=== PATIENT | female | born 1960 | race Caucasian/White ===

== ENCOUNTER 2017-05-28 07:33 | Emergency (ER) | payer SELFPAY ==
[~2017-05-28] VITALS: Ht 172.7 cm; Wt 117.9 kg
[~2017-05-28 07:33] MED LIST: ASPIRIN CHEWABL81 M1 PO; B12,B-12,B 12500 MC1 PO; TRAMADOL HCL50 MG PO; TRIMOX500 MG PO; VIBRAMYCIN100 MG PO
[2017-05-28 07:45] VITALS: BP 153/93
[2017-05-28] MEDS ORDERED: PREDNISONE50 MG PO (08:42)
[2017-05-28] MEDS ORDERED: PROAIR HFA8.5 GM INH (08:42)
[2017-05-28] MEDS ORDERED: ZITHROMAX250 MG PO (09:37)
== END 2017-05-28 08:46 | disposition home or self-care (01) ==
LOC: ED 07:33
DX: J20.9 Acute bronchitis, unspecified (principal); F17.200 Nicotine dependence, unspecified, uncomplicated; Z90.710 Acquired absence of both cervix and uterus; Z79.899 Other long term (current) drug therapy; Z79.82 Long term (current) use of aspirin

== ENCOUNTER 2018-06-12 05:17 | Emergency (ER) | payer SELFPAY ==
[~2018-06-12] VITALS: Ht 172.7 cm; Wt 111.1 kg
[~2018-06-12 05:17] MED LIST changes: +PREDNISONE50 MG PO; +PROAIR HFA8.5 GM INH; +ZITHROMAX250 MG PO
[2018-06-12 05:19] VITALS: BP 175/86
[2018-06-12] MEDS ORDERED: CEFDINIR300 MG PO (05:45)
[2018-06-12] MEDS ORDERED: PREDNISONE20 M1 PO (05:46)
== END 2018-06-12 05:52 | disposition home or self-care (01) ==
LOC: ED 05:17
DX: J40 Bronchitis, not specified as acute or chronic (principal)

== ENCOUNTER → 2018-10-01 | Outpatient (CLI) | payer SELFPAY ==
[~2018-10-01] MED LIST changes: +CEFDINIR300 MG PO; +DELTASONE20 M1 PO; +PREDNISONE20 M1 PO
== END | disposition home or self-care (01) ==
LOC: RESCLI 09:03
DX: N63.12 Unspecified lump in the right breast, upper inner quadrant (principal); M79.89 Other specified soft tissue disorders

== ENCOUNTER → 2018-10-04 | Outpatient (CLI) | payer SELFPAY | END | disposition home or self-care (01) | LOC: US 00:47 | DX: Z12.11 Encounter for screening for malignant neoplasm of colon (principal); M79.89 Other specified soft tissue disorders; I10 Essential (primary) hypertension; N63.0 Unspecified lump in unspecified breast; Z90.710 Acquired absence of both cervix and uterus ==

== ENCOUNTER → 2018-10-08 | Outpatient (CLI) | payer SELFPAY ==
[2018-10-08 07:25] LABS: ALBUMIN 3.8 gm/dl (3.1-4.5); BUN 22 mg/dl (7-24); CHLORIDE 106 mmol/L (98-107); CREATININE 0.67 mg/dL (0.55-1.02); POTASSIUM 4.2 mmol/L (3.5-5.1); SGOT/AST 19 IU/L (3-35); SGPT/ALT 22 U/L (12-78); SODIUM 141 mmol/L (136-145)
[2018-10-08 07:26] LABS: ALKALINE PHOSPHATASE 92 U/L (45-117); TOTAL PROTEIN 7.2 gm/dL (6.4-8.2)
[2018-10-08 07:35] LABS: BASO # 0.1 10*3/uL (0.0-0.1); BASO % 0.7 % (0.0-1.0); EOS # 0.2 10*3/uL (0.0-0.4); HEMATOCRIT 42.9 % (37.0-47.0); HEMOGLOBIN 14.2 g/dl (12.0-16.0); LYMPH # 2.2 10*3/uL (1.3-4.4); LYMPH % 24.5 % (27.0-41.0); MEAN CELL VOLUME 90.1 fl (81.0-99.0); MEAN CORPUSCULAR HGB 29.8 pg (27.0-31.0); MEAN CORPUSCULAR HGB CONC 33.1 g/dl (33.0-37.0); MEAN PLATELET VOLUME 11.9 fl (9.6-12.3); MONO # 0.6 10*3/uL (0.1-1.0); MONO % 6.5 % (3.0-9.0); NEUT # 5.8 10*3/uL (2.3-7.9); NEUT % 66.1 % (47.0-73.0); PLATELET COUNT AUTOMATED 179 10*3/uL (130-400); RED BLOOD COUNT 4.76 10*6/uL (4.10-5.10); RED CELL DISTRI WIDTH 13.5 % (0-14.5); WHITE BLOOD COUNT 8.8 10*3/uL (4.8-10.8)
== END | disposition home or self-care (01) ==
LOC: LAB 06:26
PROVIDERS: Internal Medicine
DX: I10 Essential (primary) hypertension (principal)

== ENCOUNTER → 2018-11-08 | Outpatient (CLI) | payer SELFPAY | END | disposition home or self-care (01) | LOC: RESCLI 00:20 | DX: N63.0 Unspecified lump in unspecified breast (principal); I10 Essential (primary) hypertension; F32.9 Major depressive disorder, single episode, unspecified; F17.200 Nicotine dependence, unspecified, uncomplicated ==

== ENCOUNTER → 2018-12-24 | Outpatient (CLI) | payer SELFPAY | END | disposition home or self-care (01) | LOC: RESCLI 02:16 | DX: I10 Essential (primary) hypertension (principal); R19.7 Diarrhea, unspecified; F32.9 Major depressive disorder, single episode, unspecified; R11.0 Nausea; Z79.899 Other long term (current) drug therapy; Z87.891 Personal history of nicotine dependence ==

== ENCOUNTER 2019-01-13 16:12 | Emergency (ER) | payer SELFPAY ==
[~2019-01-13] VITALS: Ht 172.7 cm; Wt 108.9 kg
[~2019-01-13 16:12] MED LIST changes: -DELTASONE20 M1 PO
[2019-01-13 16:15] VITALS: BP 151/60
[2019-01-13] MEDS ORDERED: DELTASONE20 M1 PO (17:02)
== END 2019-01-13 17:14 | disposition home or self-care (01) ==
LOC: ED 16:12
DX: T78.3XXA Angioneurotic edema, initial encounter (principal); K14.8 Other diseases of tongue; J39.2 Other diseases of pharynx; M54.2 Cervicalgia; Y92.89 Other specified places as the place of occurrence of the external cause

== ENCOUNTER → 2019-01-29 | Outpatient (CLI) | payer SELFPAY ==
[~2019-01-29] MED LIST changes: +DELTASONE20 M1 PO
== END | disposition home or self-care (01) ==
LOC: RESCLI 08:17
DX: I10 Essential (primary) hypertension (principal); R19.7 Diarrhea, unspecified; E55.9 Vitamin D deficiency, unspecified; E53.8 Deficiency of other specified B group vitamins; N63.0 Unspecified lump in unspecified breast; Z72.0 Tobacco use

== ENCOUNTER 2019-04-15 04:56 | Emergency (ER) | payer SELFPAY ==
[~2019-04-15] VITALS: Ht 172.7 cm; Wt 108.9 kg
--- NOTE | ~2019-04-15 | EKG ---
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
[2019-04-15 04:56] VITALS: BP 153/63
[2019-04-15 06:08] LABS: BASO # 0.1 10*3/uL (0.0-0.1); EOS # 0.1 10*3/uL (0.0-0.4); EOS % 1.9 % (1.0-4.0); HEMATOCRIT 40.5 % (37.0-47.0); LYMPH # 1.8 10*3/uL (1.3-4.4); LYMPH % 25.3 % (27.0-41.0); MEAN CELL VOLUME 92.5 fl (81.0-99.0); MEAN CORPUSCULAR HGB 29.7 pg (27.0-31.0); MEAN CORPUSCULAR HGB CONC 32.1 g/dl (33.0-37.0); MEAN PLATELET VOLUME 11.9 fl (9.6-12.3); MONO # 0.7 10*3/uL (0.1-1.0); NEUT # 4.4 10*3/uL (2.3-7.9); NEUT % 60.7 % (47.0-73.0); PLATELET COUNT AUTOMATED 206 10*3/uL (130-400); RED BLOOD COUNT 4.38 10*6/uL (4.10-5.10); RED CELL DISTRI WIDTH 13.2 % (0-14.5); WHITE BLOOD COUNT 7.3 10*3/uL (4.8-10.8)
[2019-04-15 06:18] LABS: ALBUMIN 3.2 gm/dl (3.1-4.5); BUN 15 mg/dl (7-24); CHLORIDE 105 mmol/L (98-107); CREATININE 1.03 mg/dL (0.55-1.02); POTASSIUM 4.1 mmol/L (3.5-5.1); SGOT/AST 88 IU/L (3-35); SGPT/ALT 115 U/L (12-78); SODIUM 138 mmol/L (136-145)
[2019-04-15 06:20] LABS: ALKALINE PHOSPHATASE 181 U/L (45-117)
[2019-04-15 06:25] LABS: TROPONIN I < 0.015 ng/ml (<0.045)
[2019-04-15 06:34] LABS: ACT PARTIAL THROMBO TIME 25.8 SECONDS (20.0-32.1); INTERNATIONAL NORM RATIO 0.9 (2.0-3.5)
[2019-04-15] MEDS ORDERED: AVPAK AZITHROM250 M1 PO (06:34)
[2019-04-15] MEDS ORDERED: MEDROL DOSEPAK4 MG PO (06:34)
[2019-04-15] MEDS ORDERED: LEVAQUIN750 M1 PO (06:46)
== END 2019-04-15 06:51 | disposition home or self-care (01) ==
LOC: ED 04:56
PROVIDERS: Emergency Medicine
DX: J20.9 Acute bronchitis, unspecified (principal); J18.1 Lobar pneumonia, unspecified organism; I10 Essential (primary) hypertension; F17.200 Nicotine dependence, unspecified, uncomplicated; Z88.8 Allergy status to other drugs, medicaments and biological substances; Z79.899 Other long term (current) drug therapy; Z79.2 Long term (current) use of antibiotics; Z79.82 Long term (current) use of aspirin

== ENCOUNTER 2019-04-20 10:30 | Emergency (ER) | payer SELFPAY ==
[~2019-04-20] VITALS: Ht 172.7 cm; Wt 108.9 kg
--- NOTE | ~2019-04-20 | EKG ---
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
--- NOTE | ~2019-04-20 | EKG ---
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
[~2019-04-20 10:30] MED LIST changes: +AVPAK AZITHROM250 M1 PO; +LEVAQUIN750 M1 PO; +MEDROL DOSEPAK4 MG PO
[2019-04-20 11:06] LABS: BASO # 0.1 10*3/uL (0.0-0.1); BASO % 0.6 % (0.0-1.0); EOS # 0.1 10*3/uL (0.0-0.4); EOS % 0.7 % (1.0-4.0); HEMATOCRIT 40.7 % (37.0-47.0); HEMOGLOBIN 13.1 g/dl (12.0-16.0); LYMPH # 2.3 10*3/uL (1.3-4.4); LYMPH % 22.3 % (27.0-41.0); MEAN CELL VOLUME 91.9 fl (81.0-99.0); MEAN CORPUSCULAR HGB 29.6 pg (27.0-31.0); MEAN CORPUSCULAR HGB CONC 32.2 g/dl (33.0-37.0); MEAN PLATELET VOLUME 11.4 fl (9.6-12.3); MONO % 9.6 % (3.0-9.0); NEUT # 6.7 10*3/uL (2.3-7.9); NEUT % 66.3 % (47.0-73.0); NUCLEATED RED BLOOD CELL 0.2 % (0.0-0.0); PLATELET COUNT AUTOMATED 225 10*3/uL (130-400); RED BLOOD COUNT 4.43 10*6/uL (4.10-5.10); RED CELL DISTRI WIDTH 13.3 % (0-14.5); WHITE BLOOD COUNT 10.1 10*3/uL (4.8-10.8)
[2019-04-20 11:27] LABS: ACT PARTIAL THROMBO TIME 23.5 SECONDS (20.0-32.1)
[2019-04-20 11:29] LABS: ALBUMIN 3.1 gm/dl (3.1-4.5); ALKALINE PHOSPHATASE 241 U/L (45-117); BUN 15 mg/dl (7-24); CHLORIDE 106 mmol/L (98-107); CREATININE 0.89 mg/dL (0.55-1.02); POTASSIUM 3.8 mmol/L (3.5-5.1); SGOT/AST 132 IU/L (3-35); SGPT/ALT 186 U/L (12-78); SODIUM 139 mmol/L (136-145)
[2019-04-20 11:32] LABS: TROPONIN I < 0.015 ng/ml (<0.045)
[2019-04-20 14:00] VITALS: BP 156/82
== END 2019-04-20 16:00 | disposition left against medical advice (07) ==
LOC: ED 10:30
PROVIDERS: Emergency Medicine
DX: J18.1 Lobar pneumonia, unspecified organism (principal); R91.8 Other nonspecific abnormal finding of lung field; R74.0 Nonspecific elevation of levels of transaminase and lactic acid dehydrogenase [LDH]; F17.200 Nicotine dependence, unspecified, uncomplicated; Z88.8 Allergy status to other drugs, medicaments and biological substances; Z79.2 Long term (current) use of antibiotics; Z79.899 Other long term (current) drug therapy; Z79.82 Long term (current) use of aspirin

== ENCOUNTER 2019-04-27 19:17 | Emergency (ER) | payer SELFPAY ==
[~2019-04-27] VITALS: Ht 172.7 cm; Wt 104.3 kg
[2019-04-27 19:20] VITALS: BP 144/70
[2019-04-27] MEDS ORDERED: MEDROL DOSEPAK4 MG PO (21:05)
== END 2019-04-27 21:14 | disposition home or self-care (01) ==
LOC: ED 19:17
DX: L27.1 Localized skin eruption due to drugs and medicaments taken internally (principal); T50.905A Adverse effect of unspecified drugs, medicaments and biological substances, initial encounter; F17.200 Nicotine dependence, unspecified, uncomplicated; Z88.8 Allergy status to other drugs, medicaments and biological substances; Y92.89 Other specified places as the place of occurrence of the external cause

== ENCOUNTER → 2019-05-14 | Outpatient (CLI) | payer SELFPAY | END | disposition home or self-care (01) | LOC: RESCLI 01:47 | DX: C34.90 Malignant neoplasm of unspecified part of unspecified bronchus or lung (principal); C80.1 Malignant (primary) neoplasm, unspecified; C78.7 Secondary malignant neoplasm of liver and intrahepatic bile duct; R11.0 Nausea; Z79.899 Other long term (current) drug therapy ==

== ENCOUNTER → 2019-06-17 | Outpatient (CLI) | payer SELFPAY | END | disposition home or self-care (01) | LOC: RESCLI 02:28 | DX: C34.90 Malignant neoplasm of unspecified part of unspecified bronchus or lung (principal); C80.1 Malignant (primary) neoplasm, unspecified; C78.7 Secondary malignant neoplasm of liver and intrahepatic bile duct; R11.0 Nausea; Z79.899 Other long term (current) drug therapy; Z90.710 Acquired absence of both cervix and uterus ==

== ENCOUNTER 2019-08-12 11:25 | Emergency (ER) | payer MEDICAID ==
[~2019-08-12] VITALS: Ht 172.7 cm; Wt 99.8 kg
[2019-08-12 11:33] VITALS: BP 155/92
[2019-08-12] MEDS ORDERED: CLINDAMYCIN HC300 MG PO (12:07)
[2019-08-12] MEDS ORDERED: AMOXICILLIN500 M2 PO (12:07)
[2019-08-12] MEDS ORDERED: Peridex 473 ML473 ML PO (12:09)
== END 2019-08-12 12:14 | disposition home or self-care (01) ==
LOC: ED 11:25
DX: K04.7 Periapical abscess without sinus (principal); F17.200 Nicotine dependence, unspecified, uncomplicated; Z88.8 Allergy status to other drugs, medicaments and biological substances; Z79.82 Long term (current) use of aspirin; Z79.899 Other long term (current) drug therapy; Z90.710 Acquired absence of both cervix and uterus

== ENCOUNTER → 2020-02-05 | Outpatient (CLI) | payer OTHER ==
[~2020-02-05] MED LIST changes: +AMOXICILLIN500 M2 PO; +CLINDAMYCIN HC300 MG PO; +Peridex 473 ML473 ML PO
== END | disposition home or self-care (01) ==
LOC: RESCLI 14:09
PROVIDERS: ATTEND Internal Medicine
DX: C34.90 Malignant neoplasm of unspecified part of unspecified bronchus or lung (principal); F32.9 Major depressive disorder, single episode, unspecified; F41.9 Anxiety disorder, unspecified; R11.0 Nausea; Z72.0 Tobacco use; Z79.899 Other long term (current) drug therapy; Z90.710 Acquired absence of both cervix and uterus; Z98.51 Tubal ligation status

== ENCOUNTER → 2020-03-02 | Outpatient (CLI) | payer OTHER | LOC: RESCLI 08:57 | PROVIDERS: ATTEND Social Worker Clinical | DX: I10 Essential (primary) hypertension (principal); G57.90 Unspecified mononeuropathy of unspecified lower limb; E55.9 Vitamin D deficiency, unspecified; C80.1 Malignant (primary) neoplasm, unspecified; C34.90 Malignant neoplasm of unspecified part of unspecified bronchus or lung; Z79.899 Other long term (current) drug therapy; Z90.710 Acquired absence of both cervix and uterus; Z98.51 Tubal ligation status ==

== ENCOUNTER → 2020-03-09 | Outpatient (CLI) | payer OTHER ==
[2020-03-09 13:26] LABS: HEMATOCRIT 41.3 % (37.0-47.0); MEAN CELL VOLUME 96.7 fl (81.0-99.0); MEAN CORPUSCULAR HGB 30.9 pg (27.0-31.0); NUCLEATED RED BLOOD CELL 0.5 % (0.0-0.0); RED BLOOD COUNT 4.27 10*6/uL (4.10-5.10); RED CELL DISTRI WIDTH 16.6 % (0-14.5); WHITE BLOOD COUNT 6.1 10*3/uL (4.8-10.8)
[2020-03-09 13:41] LABS: PLATELET COUNT AUTOMATED 23 10*3/uL (130-400)
[2020-03-09 13:47] LABS: TOTAL CELLS COUNTED 100 #CELLS
[2020-03-09 13:48] LABS: PLATELET SUFFICIENCY LOW (NORMAL); POLYCHROMASIA SLIGHT
[2020-03-09 13:53] LABS: ALBUMIN 2.7 gm/dl (3.1-4.5); ALKALINE PHOSPHATASE 171 U/L (45-117); BUN 21 mg/dl (7-24); CHLORIDE 104 mmol/L (98-107); CHOLESTEROL 250 mg/dL (<200); CREATININE 0.87 mg/dL (0.55-1.02); HDL CHOLESTEROL 64 mg/dl (40-60); LDL CHOLESTEROL 159 mg/dL (9-159); POTASSIUM 4.6 mmol/L (3.5-5.1); SGOT/AST 83 IU/L (3-35); SGPT/ALT 174 U/L (12-78); SODIUM 139 mmol/L (136-145); TOTAL PROTEIN 6.8 gm/dL (6.4-8.2); TRIGLYCERIDES 134 mg/dl (<150); VLDL CHOLESTEROL 27 mg/dL (6-40)
[2020-03-09 14:37] LABS: VITAMIN D, 25-HYDROXY 10.1 ng/mL (30-100)
== END | disposition home or self-care (01) ==
LOC: LAB 12:19
PROVIDERS: ATTEND Social Worker Clinical
DX: I10 Essential (primary) hypertension (principal); E55.9 Vitamin D deficiency, unspecified; G57.90 Unspecified mononeuropathy of unspecified lower limb; Z79.899 Other long term (current) drug therapy

== ENCOUNTER → 2020-03-11 | Outpatient (CLI) | payer OTHER ==
[~2020-03-11] MED LIST changes: +AMLODIPINE BESYL5 MG PO; +BUMETANIDE2 MG PO; +CARVEDILOL25 MG PO; +GABAPENTIN100 M2 PO; +LORAZEPAM1 MG PO; +PERCOCET 7.5-31 EACH PO; +PROVENTIL HFA6.7 GM INH
[2020-03-11 08:18] LABS: HEMATOCRIT 41.1 % (37.0-47.0); MEAN CELL VOLUME 96.9 fl (81.0-99.0); MEAN CORPUSCULAR HGB 31.1 pg (27.0-31.0); MEAN CORPUSCULAR HGB CONC 32.1 g/dl (33.0-37.0); MEAN PLATELET VOLUME 11.9 fl (9.6-12.3); NUCLEATED RED BLOOD CELL 0.1 10*3/uL (0.0-0.0); RED BLOOD COUNT 4.24 10*6/uL (4.10-5.10); RED CELL DISTRI WIDTH 17.4 % (0-14.5); WHITE BLOOD COUNT 7.6 10*3/uL (4.8-10.8)
[2020-03-11 08:22] LABS: PLATELET COUNT AUTOMATED 27 10*3/uL (130-400)
[2020-03-11 08:44] LABS: TOTAL CELLS COUNTED 100 #CELLS
[2020-03-11 08:45] LABS: PLATELET SUFFICIENCY LOW (NORMAL)
== END | disposition home or self-care (01) ==
LOC: RESCLI 01:32 → LAB 01:32 → RESCLI 07:44
PROVIDERS: Internal Medicine; ATTEND Internal Medicine
DX: I10 Essential (primary) hypertension (principal); E55.9 Vitamin D deficiency, unspecified; C34.90 Malignant neoplasm of unspecified part of unspecified bronchus or lung; C80.1 Malignant (primary) neoplasm, unspecified; C78.7 Secondary malignant neoplasm of liver and intrahepatic bile duct; F32.9 Major depressive disorder, single episode, unspecified; G57.90 Unspecified mononeuropathy of unspecified lower limb; C79.31 Secondary malignant neoplasm of brain; R60.9 Edema, unspecified; D69.6 Thrombocytopenia, unspecified

== ENCOUNTER 2020-03-17 20:07 | Inpatient (IN) | payer OTHER ==
[~2020-03-17] VITALS: Ht 172.7 cm; Wt 120.0 kg
[~2020-03-17 20:07] MED LIST changes: -AMLODIPINE BESYL5 MG PO; -BUMETANIDE2 MG PO; -CARVEDILOL25 MG PO; -GABAPENTIN100 M2 PO; -LORAZEPAM1 MG PO; -PERCOCET 7.5-31 EACH PO; -PROVENTIL HFA6.7 GM INH
[2020-03-17 20:12] VITALS: BP 95/44
[2020-03-17 21:18] LABS: HEMATOCRIT 39.6 % (37.0-47.0); MEAN CELL VOLUME 96.1 fl (81.0-99.0); MEAN CORPUSCULAR HGB 31.1 pg (27.0-31.0); MEAN CORPUSCULAR HGB CONC 32.3 g/dl (33.0-37.0); NUCLEATED RED BLOOD CELL 0.4 % (0.0-0.0); PLATELET COUNT AUTOMATED 31 10*3/uL (130-400); RED BLOOD COUNT 4.12 10*6/uL (4.10-5.10); RED CELL DISTRI WIDTH 17.1 % (0-14.5); WHITE BLOOD COUNT 7.1 10*3/uL (4.8-10.8)
[2020-03-17 21:36] LABS: ALBUMIN 2.3 gm/dl (3.1-4.5); CREATININE 1.98 mg/dL (0.55-1.02); POTASSIUM 4.6 mmol/L (3.5-5.1); TOTAL PROTEIN 6.6 gm/dL (6.4-8.2)
[2020-03-17 21:40] LABS: PLATELET SUFFICIENCY NORMAL (NORMAL); TOTAL CELLS COUNTED 100 #CELLS
[2020-03-17 23:01] LABS: BILIRUBIN 1+ (Negative); BLOOD Negative (Negative); CLARITY Cloudy (Clear); COLOR Dark Yellow (Yellow); GLUCOSE Negative (Negative); KETONE Negative (Negative); LEUKO ESTERASE 2+ (Negative); NITRITE Negative (Negative); SPECIFIC GRAVITY 1.015 (1.001-1.030)
[2020-03-17 23:09] LABS: EPITHELIAL CELLS 31-40
[2020-03-18] VITALS (15 sets, daily range): BP systolic 78–115; BP diastolic 47–77
[2020-03-18] MEDS ORDERED: PROVENTIL HFA6.7 GM INH (01:14)
[2020-03-18] MEDS ORDERED: BUMETANIDE2 MG PO (01:14)
[2020-03-18] MEDS ORDERED: CARVEDILOL25 MG PO (01:14)
[2020-03-18] MEDS ORDERED: AMLODIPINE BESYL5 MG PO (01:15)
[2020-03-18] MEDS ORDERED: GABAPENTIN100 M2 PO (01:15)
[2020-03-18] MEDS ORDERED: PERCOCET 7.5-31 EACH PO (01:15)
[2020-03-18] MEDS ORDERED: LORAZEPAM1 MG PO (01:15)
--- NOTE | 2020-03-18 02:56 | NUR ---
A 59, admitted to 4E, under the services of DANA Arciniega DO with a diagnosis of CELLULITIS. Chief complaint is BACK/BLE PAIN. Patient arrived via bed from ER. Monitor applied. Initial assessment completed. Vital signs taken and recorded. DANA ARCINIEGA DO notified of admission to the unit. Orders received. See assessment for past medical history, medications and allergies. Patient oriented to unit. Clothing/patient valuable form completed. LORE BISWAS
--- NOTE | 2020-03-18 03:00 | NUR ---
HARD TO ASSESS BLE CELLUITIS AND GET APPROPIATE MEASUREMENTS D/T TENDERNESS/PAIN TO PATIENT, NOT ABLE TO MOVE LEGS SUFFICIENTLY
--- NOTE | 2020-03-18 03:22 | NUR ---
AWARE OF HOME MEDS UPDATED. PATIENT ALSO NEEDS SOMTHING FOR PAIN FOR LOWER BACK AND BLE CELLULITIS, AWAITING WOUND ORDERS.
--- NOTE | 2020-03-18 03:54 | NUR ---
PATIENT MEDICATED WITH DILAUDID FOR C/O 10/10 BACK PAIN AND BLE LEG PAIN. WILL MONITOR
[2020-03-18 04:03] LABS: HEMATOCRIT 38.4 % (37.0-47.0); MEAN CELL VOLUME 94.3 fl (81.0-99.0); MEAN CORPUSCULAR HGB 30.7 pg (27.0-31.0); MEAN CORPUSCULAR HGB CONC 32.6 g/dl (33.0-37.0); MEAN PLATELET VOLUME 12.3 fl (9.6-12.3); NUCLEATED RED BLOOD CELL 0.3 % (0.0-0.0); RED BLOOD COUNT 4.07 10*6/uL (4.10-5.10); WHITE BLOOD COUNT 6.8 10*3/uL (4.8-10.8)
--- NOTE | 2020-03-18 04:07 | NUR ---
ANSWERING SERVICES CALLED FOR NEW CONSULT FOR . MESSAGE LEFT
[2020-03-18 04:14] LABS: PLATELET COUNT AUTOMATED 28 10*3/uL (130-400)
[2020-03-18 04:19] LABS: ALBUMIN 2.3 gm/dl (3.1-4.5); CREATININE 1.79 mg/dL (0.55-1.02); POTASSIUM 4.2 mmol/L (3.5-5.1); TOTAL PROTEIN 6.5 gm/dL (6.4-8.2)
--- NOTE | 2020-03-18 04:27 | NUR ---
AWARE OF LA=2.2, AND PLT LEVEL OF 28. STATED OK
[2020-03-18 05:13] LABS: TOTAL CELLS COUNTED 100 #CELLS
[2020-03-18 05:14] LABS: PLATELET SUFFICIENCY LOW (NORMAL)
--- NOTE | 2020-03-18 05:41 | NUR ---
INFORMED THAT MANUAL BP TAKEN BEFORE GIVEN IV LASIX IS 92/48. STATED TO HOLD IV LASIX DOSE AT THIS TIME.
--- NOTE | 2020-03-18 09:00 | NUR ---
Track Repair Supervisor in to talk to patient. Patient states lives at home with alone. There are 4 steps in the home. Physician: resident clinic Pharmacy: [facility] services: none at present Patient's level of ADLs: MINIMAL ASSIST Patient has working utilities: all working DME: none Follow-up physician's appointment after d/c: will be made by hospitalist nurse director upon discharge Does patient want to access PORTAL?: no Discharge plan discussed with patient, she states she lives at home alone with help from her family. she states she is still independent in adls and ambulation but feels herself getting weaker. patient states she is still driving until the end of the month then she and her children decided she would no long drive after that, they would be able to transport her wherever she needed to go. she states she is currrently receiving chemotherapy. discussed with her [facility] and educated her on the services they provide. she was receptive to [facility]. given choice of companies she chose [facility], will send a referral to [facility] to see patient when she is discharged. case management will follow. COLEEN YADAV
--- NOTE | 2020-03-18 13:30 | NUR ---
NOTIFIED OF LOW BP 94/56 MANUAL, PULSE WEAK, PT COMPLAINING OF NAUSEA
--- NOTE | 2020-03-18 13:38 | NUR ---
PRN ZOFRAN GIVEN PER ORDER
--- NOTE | 2020-03-18 16:19 | NUR ---
NOTIFIED OF REPEAT BP 88/62, NOEW ORDER TO TRANSFUSE ANOTHER 250 BOLUS
--- NOTE | 2020-03-18 16:20 | NUR ---
UP TO SEE PT PER CONCERNS OF PTS BP 82/48 MANUALLY, AFTER 2 250CC BOLUS'S
--- NOTE | 2020-03-18 18:14 | NUR ---
Med held per MD order. MD @ bedside. BP extremely low. Pt being transfered to ICCU.
--- NOTE | 2020-03-18 18:30 | NUR ---
NOTIFIED OF BP 77/39, PT SYMPOTAMIC, WEAK PULSE, NAUSEA, PALE, NEW ORDER TO TRANSFER PT TO ICU
--- NOTE | 2020-03-18 18:40 | NUR ---
RECEIVED INTO ICCU 9 VIA BED. ALERT TO PERSON AND PLACE. COMPLAINS OF PAIN ALL OVER ESPECIALLY IN LEGS. BP 60 SYSTOLIC. PULSE OX 95% ON ROOM AIR. MEDIPORT INTACT TO LEFT CHEST AND INFUSING LEVOPHED GTT AT 8 BEAU'S AND INCREASED TO 15 BEAU'S
--- NOTE | 2020-03-18 19:18 | NUR ---
MEDICATED WITH PERCOCET ORDERED FOR COMPLAINTS OF PAIN IN BILATERAL LOWER EXTREMITIES. RATES PAIN A 10 ON A PAIN SCALE OF 1-10
--- NOTE | 2020-03-18 20:00 | NUR ---
DILAUDID IV FOR CONT C/O'S BILATERAL LEG PAIN.
--- NOTE | 2020-03-18 20:18 | NUR ---
EARLIER PERCOCET EFFECTIVE. [facility] [place]. LEVOPHED GTT CONT. SEE INTERVENTION SCREEN FOR Q15MIN BP'S. HOB ELEVATED. SIDE RAILS UP X'S 2. DAVID LIGHT IN REACH. PULSE OX 88% ON RA. 02 APPLIED AT 2L NC.
--- NOTE | 2020-03-18 20:50 | NUR ---
NSS BOLUS HUNG. DTR VS AT BEDSIDE. PT TO TRANSFERRED TO [facility]. AWAITING BED ASSIGNMENT.
--- NOTE | 2020-03-18 21:00 | NUR ---
2100 EARLIER DILAUDID EFFECTIVE. RESTING IN BED WITH EYES CLOSED. APPEARS TO BE SLEEPING
--- NOTE | 2020-03-18 21:54 | NUR ---
BED OBTAINED AT [facility]. DTR LIN CALLED AND NOTIFIED. LIFE TEAM CALLED AND WILL BE COMING TO GET PT FOR TRANSFER.
--- NOTE | 2020-03-18 22:08 | NUR ---
[facility] HERE FOR TRANSFER. REPORT GIVEN TO AMBULANCE PERSONNEL. PT IS ALERT, BUT DROWSY. DRSG INTACT BILATERAL LOWER EXTREMITIES. RATLIFF PATENT AND DRAINING DARK JAREN URINE. [facility] MEDIPORT INTACT. TRANSFERRED TO [facility] IN [place]. CONDITION GUARDED.
--- NOTE | 2020-03-18 22:25 | NUR ---
REPORT CALLED TO ICU AT [facility]. [employer] SYSTEM[employer] MECHANIC NOTIFIED OF PT TRANSFER
== END 2020-03-18 22:08 | disposition short-term general hospital (02) | DRG 199 ==
LOC: ED 20:07 → 4E 23:48 → EDHOLD 23:48 → 4E 03-18 01:40 → ICCU 03-18 21:04
PROVIDERS: Emergency Medicine; Internal Medicine; ADMIT Family Medicine; ATTEND Family Medicine
DX: I13.10 Hypertensive heart and chronic kidney disease without heart failure, with stage 1 through stage 4 chronic kidney disease, or unspecified chronic kidney disease (principal); I95.9 Hypotension, unspecified; L03.115 Cellulitis of right lower limb; M79.605 Pain in left leg; D69.6 Thrombocytopenia, unspecified; E87.1 Hypo-osmolality and hyponatremia; R73.9 Hyperglycemia, unspecified; C78.7 Secondary malignant neoplasm of liver and intrahepatic bile duct; C79.31 Secondary malignant neoplasm of brain; E87.2 Acidosis; E80.6 Other disorders of bilirubin metabolism; R82.71 Bacteriuria; E43 Unspecified severe protein-calorie malnutrition; A59.9 Trichomoniasis, unspecified; I50.33 Acute on chronic diastolic (congestive) heart failure; F17.210 Nicotine dependence, cigarettes, uncomplicated; C34.90 Malignant neoplasm of unspecified part of unspecified bronchus or lung; J44.9 Chronic obstructive pulmonary disease, unspecified; F41.9 Anxiety disorder, unspecified; F03.90 Unspecified dementia, unspecified severity, without behavioral disturbance, psychotic disturbance, mood disturbance, and anxiety; F32.9 Major depressive disorder, single episode, unspecified; E53.8 Deficiency of other specified B group vitamins; L03.116 Cellulitis of left lower limb; G62.9 Polyneuropathy, unspecified; E66.01 Morbid (severe) obesity due to excess calories; Z71.6 Tobacco abuse counseling; Z68.41 Body mass index [BMI] 40.0-44.9, adult; Z88.8 Allergy status to other drugs, medicaments and biological substances; Z79.82 Long term (current) use of aspirin; Z90.710 Acquired absence of both cervix and uterus; Z86.73 Personal history of transient ischemic attack (TIA), and cerebral infarction without residual deficits; Z92.3 Personal history of irradiation; Z92.21 Personal history of antineoplastic chemotherapy; Z82.49 Family history of ischemic heart disease and other diseases of the circulatory system; Z84.1 Family history of disorders of kidney and ureter; Z79.899 Other long term (current) drug therapy; N17.0 Acute kidney failure with tubular necrosis; N18.1 Chronic kidney disease, stage 1